=== PATIENT | female | born 1960 | race African-American/Black ===

== ENCOUNTER 2017-03-01 14:07 | Emergency (ER) | payer SELFPAY ==
[2017-03-01 14:18] VITALS: TEMP 98.3; BMI 37.5
--- NOTE | 2017-03-01 14:26 | PDOC ---
Rapid Medical Evaluation Chief Complaint: Weakness Medical Evaluation: Allergies Allergy/AdvReac Type Severity Reaction Status Date / Time No Known Allergies Allergy Verified 03/01/17 14:13 03/01/17 14:17 I have performed a bried in-person evaluation of this patient. The Patient presents with a cheif complaint of weakness x 1 week Pertinent physical exam findings are Nad lungs: cta bilaterally Ext: -weakness in all 4 limbs -unable to lift limbs and maintain its weight I have ordered the following labs and urinalysis The patient will proceed to the ED for further evaluation. 03/01/17 14:27
[2017-03-01 14:49] LABS: EOSINOPHIL 0.1 % (0-4.5); MCH 26.3 pg (25.7-33.7); MCHC 31.8 g/dl (32.0-36.0); MEAN CELL VOLUME 82.8 fl (80-96); MEAN PLT VOLUME 9.4 fl (7.5-11.1); NEUTROPHILS 72.5 % (42.8-82.8); PLATELET COUNT 246 K/MM3 (134-434); RDW 15.3 % (11.6-15.6); WHITE BLOOD COUNT 7.5 K/mm3 (4.0-10.0)
[2017-03-01 15:08] LABS: URINE APPEARANCE CLEAR; URINE BILIRUBIN NEGATIVE (NEGATIVE); URINE BLOOD NEGATIVE (NEGATIVE); URINE COLOR LTYELLOW; URINE GLUCOSE (UA) NEGATIVE (NEGATIVE); URINE KETONE NEGATIVE (NEGATIVE); URINE NITRITE NEGATIVE (NEGATIVE); URINE PROTEIN NEGATIVE (NEGATIVE); URINE UROBILINOGEN NEGATIVE mg/dL (0.2-1.0)
[2017-03-01 15:11] LABS: ANION GAP 8 (8-16); CALCIUM 8.6 mg/dL (8.5-10.1); CO2 24 mmol/L (21-32); CREATININE 0.8 mg/dL (0.55-1.02); GLUCOSE,RANDOM 109 mg/dL (74-106)
[2017-03-01] MEDS ORDERED: SODIUM CHLORIDE 1,000 ML IV STA (15:35)
[2017-03-01 15:44] LABS: CPK 101 IU/L (26-192)
[2017-03-01 16:24] LABS: ALBUMIN 4.2 g/dl (3.4-5.0); ALK PHOS 65 U/L (45-117); BILIRUBIN,DIRECT < 0.2 mg/dL (0.0-0.2); BILIRUBIN,TOTAL 0.4 mg/dL (0.2-1.0); SGOT/AST 11 U/L (15-37); SGPT/ALT 17 U/L (12-78)
[2017-03-01 16:25] LABS: TOT PROT 8.4 g/dl (6.4-8.2)
--- NOTE | 2017-03-01 16:54 | PDOC ---
History of Present Illness <Mara Keenan - Last Filed: 03/01/17 16:54> - History of Present Illness Initial Comments: 03/01/17 16:54 Patient is a 56 year old female with a PMHx of Myasthenia Gravis, who is visiting from [place] and presents to the emergency room with generalized weakness. Patient saw Dr Nash at [facility] in January to refill her prescription. She started taking the generic version of her prescription and began feeling weaker and weaker every time she took a dosage. Last night, she states that she forgot to take her medication and had trouble getting up. She currently states she is so weak that she is unable to lift her arms above her head. She says she has experienced this in the past when she was ill. She is unable to pinpoint exactly where her weakness is coming from, she states she feels weak all over. She states she experienced a subjective fever for a couple of days and took tylenol for relief. Patient is also complaining of bilateral flank pain as well as intermittent RUQ pain. She denies recent chills, headache or dizziness. She denies recent nausea, vomit , cough, diarrhea or constipation. She denies recent dysuria, frequency, urgency or hematuria. She denies recent chest pain or shortness of breath. <Tawana Benavides - Last Filed: 03/01/17 16:55> - General Chief Complaint: Weakness Stated Complaint: WEAKNESS, PAIN Time Seen by Provider: 03/01/17 15:01 Past History - Past Medical History COPD: No Other medical history: PATITO - Suicide/Smoking/Psychosocial Hx Smoking History: Never smoked Have you smoked in the past 12 months: No Information on smoking cessation initiated: No Hx Alcohol Use: No Drug/Substance Use Hx: No Substance Use Type: None <Mara Keenan - Last Filed: 03/01/17 16:54> <Tawana Benavides - Last Filed: 03/01/17 16:55> - Past Medical History Allergies/Adverse Reactions: Allergies Allergy/AdvReac Type Severity Reaction Status Date / Time No Known Allergies Allergy Verified 03/01/17 14:13 Home Medications: Ambulatory Orders Prednisone [Deltasone] 60 mg PO DAILY 03/01/17 Pyridostigmine [Mestinon Timespan] 300 mg PO Q6H 03/01/17 Review of Systems - Review of Systems Comments:: 03/01/17 16:55 GENERAL/CONSTITUTIONAL: +fever, +generalized weakness. no chills. HEAD, EYES, EARS, NOSE AND THROAT: No change in vision. No ear pain or discharge. No sore throat. GASTROINTESTINAL: No nausea, vomiting, diarrhea or constipation. GENITOURINARY: No dysuria, frequency, or change in urination. CARDIOVASCULAR: No chest pain or shortness of breath. RESPIRATORY: No cough, wheezing, or hemoptysis. MUSCULOSKELETAL: +back pain. No neck pain. SKIN: No rash NEUROLOGIC: No headache, vertigo, loss of consciousness, or change in sensation. ENDOCRINE: No increased thirst. No abnormal weight change. HEMATOLOGIC/LYMPHATIC: No anemia, easy bleeding, or history of blood clots. ALLERGIC/IMMUNOLOGIC: No hives or skin allergy. <Tawana Benavides - Last Filed: 03/01/17 16:55> *Physical Exam - Vital Signs Last Vital Signs Temp Pulse Resp BP Pulse Ox 98.3 F 73 18 136/71 100 03/01/17 14:14 03/01/17 14:14 03/01/17 14:14 03/01/17 14:14 03/01/17 14:14 <Mara Keenan - Last Filed: 03/01/17 16:54> - Vital Signs Last Vital Signs Temp Pulse Resp BP Pulse Ox 98.3 F 73 18 136/71 100 03/01/17 14:14 03/01/17 14:14 03/01/17 14:14 03/01/17 14:14 03/01/17 14:14 <Tawana Benavides - Last Filed: 03/01/17 16:55> ED Treatment Course - LABORATORY CBC & Chemistry Diagram: 03/01/17 14:44 03/01/17 14:44 - ADDITIONAL ORDERS Additional order review: Laboratory Results 03/01/17 03/01/17 03/01/17 15:56 14:55 14:44 PTT (Actin FS) Sodium 141 Potassium 3.8 Chloride 109 H Carbon Dioxide 24 Anion Gap 8 BUN 11 Creatinine 0.8 Random Glucose 109 H Calcium 8.6 Total Bilirubin 0.4 Direct Bilirubin < 0.2 AST 11 L ALT 17 Alkaline Phosphatase 65 Creatine Kinase 101 Total Protein 8.4 H Albumin 4.2 Urine Color Ltyellow Urine Appearance Clear Urine pH 5.0 Ur Specific [place] 1.010 Urine Protein Negative Urine Glucose (UA) Negative Urine Ketones Negative Urine Blood Negative Urine Nitrite Negative Urine Bilirubin Negative Urine Urobilinogen Negative 03/01/17 14:44 PTT (Actin FS) 34.4 Sodium Potassium Chloride Carbon Dioxide Anion Gap BUN Creatinine Random Glucose Calcium Total Bilirubin Direct Bilirubin AST ALT Alkaline Phosphatase Creatine Kinase Total Protein Albumin Urine Color Urine Appearance Urine pH Ur Specific [place] Urine Protein Urine Glucose (UA) Urine Ketones Urine Blood Urine Nitrite Urine Bilirubin Urine Urobilinogen 03/01/17 14:44 RBC 4.85 MCV 82.8 MCHC 31.8 L RDW 15.3 MPV 9.4 Neutrophils % 72.5 Lymphocytes % 24.6 Monocytes % 1.8 L Eosinophils % 0.1 Basophils % 1.0 - RADIOLOGY Radiology Studies Ordered: Category Date Time Status GALLBLADDER US [US] Stat Ultrasound 03/01/17 15:36 Ordered - Medications Given in the ED: ED Medications Discontinued Medications Generic Name Dose Route Start Last Admin Trade Name Freq PRN Reason Stop Dose Admin Sodium Chloride 1,000 mls @ 1,000 mls/hr 03/01/17 15:35 03/01/17 16:11 Normal Saline - IV 03/01/17 16:34 1,000 mls/hr ASDIR STA Administration <Mara Keenan - Last Filed: 03/01/17 16:54> - LABORATORY CBC & Chemistry Diagram: 03/01/17 14:44 03/01/17 14:44 - ADDITIONAL ORDERS Additional order review: Laboratory Results 03/01/17 03/01/17 03/01/17 15:56 14:55 14:44 PTT (Actin FS) Sodium 141 Potassium 3.8 Chloride 109 H Carbon Dioxide 24 Anion Gap 8 BUN 11 Creatinine 0.8 Random Glucose 109 H Calcium 8.6 Total Bilirubin 0.4 Direct Bilirubin < 0.2 AST 11 L ALT 17 Alkaline Phosphatase 65 Creatine Kinase 101 Total Protein 8.4 H Albumin 4.2 Urine Color Ltyellow Urine Appearance Clear Urine pH 5.0 Ur Specific [place] 1.010 Urine Protein Negative Urine Glucose (UA) Negative Urine Ketones Negative Urine Blood Negative Urine Nitrite Negative Urine Bilirubin Negative Urine Urobilinogen Negative 03/01/17 14:44 PTT (Actin FS) 34.4 Sodium Potassium Chloride Carbon Dioxide Anion Gap BUN Creatinine Random Glucose Calcium Total Bilirubin Direct Bilirubin AST ALT Alkaline Phosphatase Creatine Kinase Total Protein Albumin Urine Color Urine Appearance Urine pH Ur Specific [place] Urine Protein Urine Glucose (UA) Urine Ketones Urine Blood Urine Nitrite Urine Bilirubin Urine Urobilinogen 03/01/17 14:44 RBC 4.85 MCV 82.8 MCHC 31.8 L RDW 15.3 MPV 9.4 Neutrophils % 72.5 Lymphocytes % 24.6 Monocytes % 1.8 L Eosinophils % 0.1 Basophils % 1.0 - Medications Given in the ED: ED Medications Discontinued Medications Generic Name Dose Route Start Last Admin Trade Name Freq PRN Reason Stop Dose Admin Sodium Chloride 1,000 mls @ 1,000 mls/hr 03/01/17 15:35 03/01/17 16:11 Normal Saline - IV 03/01/17 16:34 1,000 mls/hr ASDIR STA Administration <Tawana Benavides - Last Filed: 03/01/17 16:55> *DC/Admit/Observation/Transfer - Attestations Scribe Attestion: 03/01/17 16:55 Documentation prepared by Tawana Benavides, acting as medical safety director for Mara Keenan MD. <Tawana Benavides - Last Filed: 03/01/17 16:55>
[2017-03-01 18:30] LABS: TROPONIN I < 0.02 ng/ml (0.00-0.05)
--- NOTE | 2017-03-01 20:33 | PDOC ---
History of Present Illness - General Chief Complaint: Weakness Stated Complaint: WEAKNESS, PAIN Time Seen by Provider: 03/01/17 15:01 Past History - Past Medical History Allergies/Adverse Reactions: Allergies Allergy/AdvReac Type Severity Reaction Status Date / Time No Known Allergies Allergy Verified 03/01/17 14:13 Home Medications: Ambulatory Orders Amoxicillin/Potassium Clav [Augmentin 875-125 Tablet] 1 each PO BID #14 tablet 03/01/17 Prednisone [Deltasone] 60 mg PO DAILY 03/01/17 Pyridostigmine [Mestinon Timespan] 300 mg PO Q6H 03/01/17 COPD: No Other medical history: BandarGRAVES - Suicide/Smoking/Psychosocial Hx Smoking History: Never smoked Have you smoked in the past 12 months: No Information on smoking cessation initiated: No Hx Alcohol Use: No Drug/Substance Use Hx: No Substance Use Type: None *Physical Exam - Vital Signs Last Vital Signs Temp Pulse Resp BP Pulse Ox 98.3 F 73 18 136/71 100 03/01/17 14:14 03/01/17 14:14 03/01/17 14:14 03/01/17 14:14 03/01/17 14:14 ED Treatment Course - LABORATORY CBC & Chemistry Diagram: 03/01/17 14:44 03/01/17 14:44 - ADDITIONAL ORDERS Additional order review: Laboratory Results 03/01/17 03/01/17 03/01/17 15:56 14:55 14:44 PTT (Actin FS) Sodium 141 Potassium 3.8 Chloride 109 H Carbon Dioxide 24 Anion Gap 8 BUN 11 Creatinine 0.8 Random Glucose 109 H Calcium 8.6 Total Bilirubin 0.4 Direct Bilirubin < 0.2 AST 11 L ALT 17 Alkaline Phosphatase 65 Creatine Kinase 101 Troponin I < 0.02 Total Protein 8.4 H Albumin 4.2 Urine Color Ltyellow Urine Appearance Clear Urine pH 5.0 Ur Specific [place] 1.010 Urine Protein Negative Urine Glucose (UA) Negative Urine Ketones Negative Urine Blood Negative Urine Nitrite Negative Urine Bilirubin Negative Urine Urobilinogen Negative 03/01/17 14:44 PTT (Actin FS) 34.4 Sodium Potassium Chloride Carbon Dioxide Anion Gap BUN Creatinine Random Glucose Calcium Total Bilirubin Direct Bilirubin AST ALT Alkaline Phosphatase Creatine Kinase Troponin I Total Protein Albumin Urine Color Urine Appearance Urine pH Ur Specific [place] Urine Protein Urine Glucose (UA) Urine Ketones Urine Blood Urine Nitrite Urine Bilirubin Urine Urobilinogen 03/01/17 14:44 RBC 4.85 MCV 82.8 MCHC 31.8 L RDW 15.3 MPV 9.4 Neutrophils % 72.5 Lymphocytes % 24.6 Monocytes % 1.8 L Eosinophils % 0.1 Basophils % 1.0 - RADIOLOGY Radiology Studies Ordered: Category Date Time Status CHEST - PA [RAD] Stat Radiology 03/01/17 18:48 Completed - Medications Given in the ED: ED Medications Discontinued Medications Generic Name Dose Route Start Last Admin Trade Name Porsha PRN Reason Stop Dose Admin Sodium Chloride 1,000 mls @ 1,000 mls/hr 03/01/17 15:35 03/01/17 16:11 Normal Saline - IV 03/01/17 16:34 1,000 mls/hr ASDIR STA Administration *DC/Admit/Observation/Transfer Diagnosis at time of Disposition: Myasthenia - Discharge Dispostion Disposition: HOME Condition at time of disposition: Stable - Prescriptions Prescriptions: Amoxicillin/Potassium Clav [Augmentin 875-125 Tablet] 1 each PO BID #14 tablet - Referrals Referrals: Dino Queen MD [Staff Physician] - - Patient Instructions Printed Discharge Instructions: DI for Myasthenia Gravis (MG) Additional Instructions: please picker/puller your medication at you [facility] continue to take your medication for your myasthenia gravis please followup with the neurologist if your symptoms continue return to ER for any worsening symptoms - Post Discharge Activity
[2017-03-01 20:47] LABS: URINE LEUK ESTERASE Negative (NEGATIVE)
[2017-03-01 20:49] VITALS: BP 130/64; PULSE 61
== END 2017-03-01 20:46 | disposition home or self-care (01) ==
LOC: JER 14:07
PROC: 3E0337Z Introduction of Electrolytic and Water Balance Substance into Peripheral Vein, Percutaneous Approach (ICD-10-PCS; principal; 2017-03-01)
DX: G70.00 Myasthenia gravis without (acute) exacerbation (principal)
CPT/HCPCS: 36415; 71010-TC; 76705-TC; 80048; 80076; 81003; 82550; 84484; 85025; 85730; 99284-25